=== PATIENT | male | born 1990 | race Caucasian/White ===

== ENCOUNTER 2017-01-12 16:10 | Emergency (ER) | payer OTHER ==
[~2017-01-12] VITALS: Ht 182.9 cm; Wt 88.5 kg
[2017-01-12 16:12] VITALS: BP 130/80; PULSE 71; RESP 16; TEMP 98.2; O2SAT 99
[2017-01-12 17:29] VITALS: BP 132/68; PULSE 72; RESP 17; TEMP 98.5; O2SAT 100
[2017-01-12 17:47] LABS: AUTOMATED NEUTROPHIL # 4.6 TH/MM3 (1.8-7.7); BASOPHIL % 0.5 % (0.0-2.0); EOSINOPHIL # 0.1 TH/MM3 (0-0.4); EOSINOPHIL % 1.4 % (0.0-4.0); HEMATOCRIT 45.8 % (39.0-51.0); HEMO FLAGS DIFF FINAL; LYMPH % 28.4 % (9.0-44.0); LYMPHOCYTE # 2.1 TH/MM3 (1.0-4.8); MEAN CELL VOLUME 89.3 FL (80.0-100.0); MEAN CORPUSCULAR HGB CONC 34.7 % (32.0-36.0); MONO % 6.2 % (0.0-8.0); NEUT % 63.5 % (16.0-70.0); PLATELET COUNT 256 TH/MM3 (150-450); RED BLOOD COUNT 5.14 MIL/MM3 (4.50-5.90); RED CELL DISTRIBUTION WIDTH 12.7 % (11.6-17.2); WHITE BLOOD COUNT 7.3 TH/MM3 (4.0-11.0)
[2017-01-12 17:53] LABS: BACTERIA, URINE MOD /hpf; BLOOD, URINE NEG (NEG); COMMENT (UR) CULTURE INDICATED; CULTURE IF INDICATED CULTURE INDICATED; GLUCOSE,URINE NEG (NEG); KETONE, URINE NEG (NEG); NITRITE,URINE NEG (NEG); PH, URINE 7.5 (5.0-8.5); URINE COLOR YELLOW (YELLW/STRAW)
[2017-01-12 17:55] LABS: APTT (PATIENT) 25.3 SEC (24.3-30.1); PROTHROMBIN TIME - PATIENT 11.5 SEC (9.8-11.6)
[2017-01-12] MEDS ORDERED: DIATRIZOATE MEGLUM/DIATRIZOATE SOD 9 ML CUP ONE (18:11)
[2017-01-12 18:13] LABS: ALT (GPT) 27 U/L (12-78); ANION GAP 6 MEQ/L (5-15); AST (GOT) 16 U/L (15-37); BICARBONATE 30.4 MEQ/L (21.0-32.0); BLOOD UREA NITROGEN 15 MG/DL (7-18); CHLORIDE 104 MEQ/L (98-107); GLOMERULAR FILTRATION RATE 93 ML/MIN (>89); POTASSIUM 3.7 MEQ/L (3.5-5.1); SODIUM (NA) 140 MEQ/L (136-145)
[2017-01-12 18:15] LABS: ALKALINE PHOSPHATASE 54 U/L (45-117); TOTAL BILIRUBIN ADULT 1.8 MG/DL (0.2-1.0)
--- NOTE | 2017-01-12 18:35 | PD ---
HPI Chief Complaint: Abdominal Pain Time Seen by Provider: 17:50 Travel History International Travel<30 days: No Contact w/Intl Traveler<30days: No Traveled to known affect area: No History of Present Illness HPI 26-year-old male here for evaluation of abdominal pain, rectal pain, bright red blood per rectum. The patient reports that he has had these symptoms for about a year noticing bright red blood in the toilet bowl and on toilet paper. He has had intermittent suprapubic abdominal cramping for the last year as well. Patient also reports that he noticed a small cyst by his rectum that he occasionally opens, producing clear fluids. Currently the patient denies lower abdominal discomfort. No urinary symptoms. No history of abdominal surgeries. No fevers or chills. He does complain of worsening weakness and fatigue today. [facility] Past Medical History ADD: Yes Medical other: Yes (HAYFEVER) Influenza Vaccination: No Social History Alcohol Use: Yes (SOCIALLY) Tobacco Use: No Substance Use: No Allergies-Medications (Allergen,Severity, Reaction): Coded Allergies: No Known Allergies (Unverified , 01/12/17) Reported Meds & Prescriptions Reported Meds & Active Scripts Active No Active Prescriptions or Reported Medications Review of Systems Except as stated in HPI: all other systems reviewed are Neg Physical Exam Narrative GENERAL: Well-developed, well-nourished, comfortable, no apparent distress. SKIN: Focused skin assessment warm/dry. No pallor. HEAD: Atraumatic. Normocephalic. EYES: Pupils equal and round. No scleral icterus. No injection or drainage. ENT: Mucous membranes pink and moist. NECK: Trachea midline. No JVD. CARDIOVASCULAR: Regular rate and rhythm. No murmur appreciated. RESPIRATORY: No accessory muscle use. Clear to auscultation. Breath sounds equal bilaterally. GASTROINTESTINAL: Abdomen soft, non-tender, nondistended. RECTUM: At approximately the 1 o'clock position about 1.5 cm from the rectum there is a small pustule with small amount of purulent drainage. There are no other masses noted. Stool is heme positive and brown. No fluctuance or induration inside of the rectum. MUSCULOSKELETAL: No obvious deformities. No clubbing. No cyanosis. No edema. NEUROLOGICAL: Awake and alert. No obvious cranial nerve deficits. Motor grossly within normal limits. Normal speech. PSYCHIATRIC: Appropriate mood and affect; insight and judgment normal. Data Data Last Documented VS Vital Signs Date Time Temp Pulse Resp B/P (MAP) Pulse Ox O2 Delivery O2 Flow Rate FiO2 01/12/17 17:29 17 01/12/17 17:29 98.5 72 132/68 (89) 100 Room Air Orders Orders Complete Blood Count With Diff (01/12/17 16:31) Comprehensive Metabolic Panel (01/12/17 16:31) Prothrombin Time / Inr (Pt) (01/12/17 16:31) Act Partial Throm Time (Ptt) (01/12/17 16:31) Urinalysis - C+S If Indicated (01/12/17 16:31) Urine Culture (01/12/17 16:48) Ct Abd/Pel W Iv Contrast(Rout) (01/12/17 18:07) Wound Culture And Gram Stain (01/12/17 18:09) Diatrizoate Liq ( Gastroview Liq) (01/12/17 18:11) Oral Contrast - Adult (01/12/17 18:21) Iohexol 350 Inj (Omnipaque 350 Inj) (01/12/17 19:24) Labs Laboratory Tests Test 01/12/17 16:48 White Blood Count 7.3 TH/MM3 Red Blood Count 5.14 MIL/MM3 Hemoglobin 15.9 GM/DL Hematocrit 45.8 % Mean Corpuscular Volume 89.3 FL Mean Corpuscular Hemoglobin 31.0 PG Mean Corpuscular Hemoglobin Concent 34.7 % Red Cell Distribution Width 12.7 % Platelet Count 256 TH/MM3 Mean Platelet Volume 8.5 FL Neutrophils (%) (Auto) 63.5 % Lymphocytes (%) (Auto) 28.4 % Monocytes (%) (Auto) 6.2 % Eosinophils (%) (Auto) 1.4 % Basophils (%) (Auto) 0.5 % Neutrophils # (Auto) 4.6 TH/MM3 Lymphocytes # (Auto) 2.1 TH/MM3 Monocytes # (Auto) 0.5 TH/MM3 Eosinophils # (Auto) 0.1 TH/MM3 Basophils # (Auto) 0.0 TH/MM3 CBC Comment DIFF FINAL Differential Comment Prothrombin Time 11.5 SEC Prothromb Time International Ratio 1.0 RATIO Activated Partial Thromboplast Time 25.3 SEC Urine Color YELLOW Urine Turbidity CLOUDY Urine pH 7.5 Urine Specific [place]ont 1.022 Urine Protein 30 mg/dL Urine Glucose (UA) NEG mg/dL Urine Ketones NEG mg/dL Urine Occult Blood NEG Urine Nitrite NEG Urine Bilirubin NEG Urine Urobilinogen LESS THAN 2.0 MG/DL Urine Leukocyte Esterase NEG Urine WBC 2 /hpf Urine Amorphous Sediment RARE Urine Bacteria MOD /hpf Microscopic Urinalysis Comment CULTURE INDICATED Blood Urea Nitrogen 15 MG/DL Creatinine 0.99 MG/DL Random Glucose 81 MG/DL Total Protein 7.9 GM/DL Albumin 4.6 GM/DL Calcium Level 8.9 MG/DL Alkaline Phosphatase 54 U/L Aspartate Amino Transf (AST/SGOT) 16 U/L Alanine Aminotransferase (ALT/SGPT) 27 U/L Total Bilirubin 1.8 MG/DL Sodium Level 140 MEQ/L Potassium Level 3.7 MEQ/L Chloride Level 104 MEQ/L Carbon Dioxide Level 30.4 MEQ/L Anion Gap 6 MEQ/L Estimat Glomerular Filtration Rate 93 ML/MIN MDM Medical Decision Making Medical Screen Exam Complete: Yes Emergency Medical Condition: Yes Differential Diagnosis Perianal fissure, perianal abscess, Crohn's, ulcerative colitis, Narrative Course Initial vital signs show heart rate 71, blood pressure 130/80, pulse ox 99% on room air, oral temp of 98.2F. CBC is unremarkable. CMP is unremarkable. UA shows cloudy urine, 30 protein, moderate bacteria Case discussed with on-call colorectal surgeon Dr. Evans. She agrees with CT abdomen pelvis. States that the patient can follow-up in her office as an outpatient or in an outpatient office when he returns to [place] for perianal fistula. Recommends sitz bath's. CT abdomen pelvis: CONCLUSION: 1. Mild distention of small bowel loops in the left upper abdominal quadrant with an apparent transition in the mid abdomen. Findings are nonspecific and may represent a regional hypodynamic ileus although partial small bowel obstruction cannot be excluded. 2. Circumaortic left renal vein, anatomic variant Patient was made aware of all findings. She is resting comfortably. He has not had any signs or symptoms that would suggest a partial SBO. Currently he does not have any abdominal pain. On exam he does appear to have a perianal fistula with some purulent drainage. I will start him on Cipro for this which will also cover his UA findings. He was advised to make an appointment with Dr. Joyce Evans, colorectal surgery. He was informed on when to return to the emergency department. He verbalizes understanding and agreement with plan. Diagnosis Primary Impression: Perianal fistula Additional Impression: Bacteriuria Referrals: Joyce Evans MD 3 days Colorectal Surgeon Primary Care Physician 3 days Additional Instructions: Follow-up with a primary care physician this week. Follow-up with colorectal surgeon Dr. Joyce Evans this week. Return to the emergency department for worsening symptoms or any other concerns. Scripts Ciprofloxacin (Cipro) 500 Mg Tab 500 MG PO BID for Infection for 7 Days, #14 TAB 0 Refills Prov: Christopher Limon MD 01/12/17 Disposition: 01 DISCHARGE HOME Condition: Stable Christopher Limon MD Jan 12, 2017 18:35
[2017-01-12] MEDS ORDERED: IOHEXOL 350 MG/ML 10 ML VIAL (for RAD DIAG) IVCONTRAST ONE (19:24)
--- NOTE | 2017-01-12 20:43 | RADRPT ---
EXAM DATE/TIME: 01/12/2017 19:17 [facility] COMPARISON: No previous studies available for comparison. INDICATIONS : Abdominal pain. Perianal abscess vs fissure. IV CONTRAST: 100 cc Omnipaque 350 (iohexol) IV ORAL CONTRAST: Prescribed oral contrast ingested. RADIATION DOSE: 7.61 CTDIvol (mGy) MEDICAL HISTORY : None SURGICAL HISTORY : None. ENCOUNTER: Initial ACUITY: 1 day PAIN SCALE: 2/10 LOCATION: abdomen TECHNIQUE: Volumetric scanning of the abdomen and pelvis was performed. Using automated exposure control and ad justment of the mA and/or kV according to patient size, radiation dose was kept as low as reasonably achievable to obtain optimal diagnostic quality images. DICOM format image data is available electro nically for review and comparison. FINDINGS: LOWER LUNGS: The visualized lower lungs are clear. LIVER: Homogeneous density without lesion. There is no dilation of the biliary tree. No calcified gallston es. SPLEEN: Normal size without lesion. PANCREAS: Within normal limits. KIDNEYS: Normal in size and shape. There is no mass, stone or hydronephrosis. ADRENAL GLANDS: Within normal limits. VASCULAR: There is no aortic aneurysm. Circumaortic left renal vein, anatomic variant BOWEL/MESENTERY: There some nonspecific distention of small bowel loops in the left upper abdominal quadrant with rela tive decompression of the more distal bowel loops. Stool is identified in the colon. ABDOMINAL WALL: Within normal limits. RETROPERITONEUM: There is no lymphadenopathy. BLADDER: No wall thickening or mass. REPRODUCTIVE: Within normal limits. INGUINAL: There is no lymphadenopathy or hernia. MUSCULOSKELETAL: Within normal limits for patient age. CONCLUSION: 1. Mild distention of small bowel loops in the left upper abdominal quadrant with an apparent transit ion in the mid abdomen. Findings are nonspecific and may represent a regional hypodynamic ileus altho ugh partial small bowel obstruction cannot be excluded. 2. Circumaortic left renal vein, anatomic variant Greyson Francois MD on January 12, 2017 at 20:37 Board Certified Radiologist. This report was verified electronically.
[2017-01-12] MEDS ORDERED: CIPR-9 PO (20:59)
[2017-01-12 21:07] VITALS: BP 129/72
== END 2017-01-12 21:08 | disposition home or self-care (01) ==
LOC: NEPD 16:10
DX: K60.3 Anal fistula (principal); R82.71 Bacteriuria; B96.89 Other specified bacterial agents as the cause of diseases classified elsewhere; R53.1 Weakness; R53.83 Other fatigue; F98.8 Other specified behavioral and emotional disorders with onset usually occurring in childhood and adolescence
CPT/HCPCS: 74177; 80053; 81001; 85025; 85610; 85730; 86403; 87070; 87077; 87086; 87186; 99285; Q9963; Q9967; 87205